=== PATIENT | male | born 1970 | race African-American/Black ===

== ENCOUNTER 2023-01-22 19:17 | Emergency (ER) | payer MEDICARE ==
[2023-01-22] MEDS ORDERED: HYDROcodone/Acetaminophen 10/325 mg Tablet ONE (20:38)
== END 2023-01-22 21:47 | disposition home or self-care (01) ==
LOC: CSHERS 19:17
DX: M54.50 Low back pain, unspecified (principal); I11.0 Hypertensive heart disease with heart failure; I50.9 Heart failure, unspecified; I25.10 Atherosclerotic heart disease of native coronary artery without angina pectoris; E78.5 Hyperlipidemia, unspecified; F17.210 Nicotine dependence, cigarettes, uncomplicated; Z79.82 Long term (current) use of aspirin
CPT/HCPCS: 72100

== ENCOUNTER 2023-04-10 19:03 | Emergency (ER) | payer MEDICARE ==
[2023-04-10] MEDS ORDERED: Ketorolac Tromethamine 30 MG/ML VIAL ONE (21:24)
== END 2023-04-10 21:55 | disposition home or self-care (01) ==
LOC: CSHERS 19:03
DX: S93.422A Sprain of deltoid ligament of left ankle, initial encounter (principal); M25.561 Pain in right knee; I11.0 Hypertensive heart disease with heart failure; I50.9 Heart failure, unspecified; E78.5 Hyperlipidemia, unspecified; I25.10 Atherosclerotic heart disease of native coronary artery without angina pectoris; X50.1XXA Overexertion from prolonged static or awkward postures, initial encounter
CPT/HCPCS: 96372; J1885

== ENCOUNTER 2023-07-12 11:13 | Emergency (ER) | payer MEDICARE ==
[2023-07-12] MEDS ORDERED: HYDROcodone/Acetaminophen 10/325 mg Tablet ONE (11:47)
[2023-07-12] MEDS ORDERED: Cyclobenzaprine 10 MG TAB ONE (11:48)
[2023-07-12 12:24] LABS: #Basophils 0.1 10x3/uL (0.0-0.2); #Eosinphils 0.3 10x3/uL (0.0-0.5); #Monocytes 0.4 10x3/uL (0.0-1.1); #Neutrophils 2.8 10x3/uL (1.5-8.4); %Basophils 1.1 % (0.0-2.0); %Monocytes 5.6 % (0.0-10.0); %Neutrophils 44.1 % (40.0-75.0); Hematocrit 48.4 % (38.8-50.0); Hemoglobin 15.9 g/dL (13.5-17.5); Mean Corpuscular HGB CONC 32.9 g/dL (32.0-36.0); Mean Corpuscular Hemoglobin 26.6 pg (27.0-33.0); Mean Corpuscular Volume 81.1 fl (81.2-95.1); Mean Platelet Volume 11.4 fl (7.4-10.4); Platelet Count 272 10x3/uL (150-450); RBC Distribution Width 14.6 % (11.5-14.5); Red Blood Cell (RBC) Count 5.97 10x6/uL (4.32-5.72); White Blood Cell (WBC) Count 6.4 10x3/uL (3.5-10.5)
[2023-07-12 12:35] LABS: ALT (SGPT) 12 U/L (8-55); AST (SGOT) 18 U/L (5-34); Albumin 4.3 g/dL (3.5-5.0); Alkaline Phosphatase 75 U/L (40-110); Anion Gap 16 mmol/L (10-20); BUN (Urea Nitrogen) 7 mg/dL (8.4-25.7); Bilirubin, Total 0.7 mg/dL (0.2-1.2); Calc. Creatinine Clearance 0 mL/min (70-130); Carbon Dioxide 20 mmol/L (22-29); Chloride 109 mmol/L (98-107); Estimated GFR 87; Globulin 3.4 g/dL (2.4-3.5); Glucose 85 mg/dL (70-105); Potassium 3.9 mmol/L (3.5-5.1); Protein, Total 7.7 g/dL (6.0-8.3); Sodium 141 mmol/L (136-145)
[2023-07-12 12:37] LABS: INR-International Normal Ratio 3.2; PTT 46.7 sec (22.0-33.0)
[2023-07-12 12:42] LABS: Troponin I Less than 0.010 ng/mL (< 0.028)
== END 2023-07-12 13:46 | disposition home or self-care (01) ==
LOC: CSHERS 11:13
DX: M54.12 Radiculopathy, cervical region (principal); I11.0 Hypertensive heart disease with heart failure; I50.9 Heart failure, unspecified; E78.5 Hyperlipidemia, unspecified; Z79.899 Other long term (current) drug therapy; Z79.01 Long term (current) use of anticoagulants; Z79.82 Long term (current) use of aspirin
CPT/HCPCS: 71045; 80053; 84484; 85025; 85610; 85730; 93005

== ENCOUNTER 2025-04-11 15:23 | Emergency (ER) | payer MEDICAID, MEDICARE, SELFPAY ==
[2025-04-11 15:56] LABS: Glucose, Urine (Dipstick) Normal (Negative); Leukocyte Negative (Negative); Protein, Urine (Dipstick) 30 mg/dl (Neg-Trace); Specific Gravity, Urine 1.015 (1.005-1.030)
[2025-04-11 16:44] LABS: Bacteria/HPF None Seen HPF (None Seen); CAUTI Indications for Culture Pelvic or flank pain; RBC/HPF 0-3 HPF (0-3); WBC/HPF 0-3 HPF (0-3)
[2025-04-11 16:45] LABS: Mucous/LPF Rare LPF (<2+); Urine Culture Reflex No No
[2025-04-11] MEDS ORDERED: Ketorolac Tromethamine 30 MG (1 mL) VIAL ONE (17:21)
== END 2025-04-11 17:40 | disposition home or self-care (01) ==
LOC: CSHERS 15:23
DX: M54.42 Lumbago with sciatica, left side (principal); I25.10 Atherosclerotic heart disease of native coronary artery without angina pectoris; I11.0 Hypertensive heart disease with heart failure; I50.9 Heart failure, unspecified; F17.290 Nicotine dependence, other tobacco product, uncomplicated
CPT/HCPCS: 81001; 96372; 99283; J1885